=== PATIENT | female | born 1970 | race Caucasian/White ===

== ENCOUNTER 2016-07-25 22:26 | Emergency (ER) | payer OTHER ==
[~2016-07-25] VITALS: Ht 165.1 cm; Wt 97.9 kg
[2016-07-25] MEDS ORDERED: PERCOCET 5/31 TABLET PO (23:24)
[2016-07-25] MEDS ORDERED: INDOCIN50 MG PO (23:24)
[2016-07-25] MEDS ORDERED: VALIUM5 MG PO (23:24)
[2016-07-25] MEDS ORDERED: PREDNISONE20 MG PO (23:24)
[2016-07-26 00:13] VITALS: BP 139/95
== END 2016-07-26 00:14 | disposition home or self-care (01) ==
LOC: EXP 22:26 → EME 22:26 → EXP 07-26 00:14
DX: S39.012A Strain of muscle, fascia and tendon of lower back, initial encounter (principal); M51.37 Other intervertebral disc degeneration, lumbosacral region; G89.29 Other chronic pain; M54.5 Low back pain; X50.0XXA Overexertion from strenuous movement or load, initial encounter; Z88.6 Allergy status to analgesic agent
CPT/HCPCS: 99281; 99283; J1885; J3010; J7512

== ENCOUNTER 2016-08-03 21:24 | Emergency (ER) | payer OTHER ==
[~2016-08-03] VITALS: Ht 165.1 cm; Wt 99.3 kg
[~2016-08-03 21:24] MED LIST: INDOCIN50 MG PO; PERCOCET 5/31 TABLET PO; PREDNISONE20 MG PO; VALIUM5 MG PO
[2016-08-03] MEDS ORDERED: VALIUM5 MG PO (22:14)
[2016-08-03 22:31] VITALS: BP 106/80
== END 2016-08-03 22:42 | disposition home or self-care (01) ==
LOC: EME 21:24
DX: G89.29 Other chronic pain (principal); M54.5 Low back pain; Z88.6 Allergy status to analgesic agent
CPT/HCPCS: 99281; 99283; J3010

== ENCOUNTER 2016-08-26 21:11 | Emergency (ER) | payer OTHER ==
[~2016-08-26] VITALS: Ht 165.1 cm; Wt 102.7 kg
[2016-08-26 21:24] VITALS: BP 130/89
== END 2016-08-27 00:23 | disposition home or self-care (01) ==
LOC: EME 21:11
DX: G89.29 Other chronic pain (principal); M54.5 Low back pain
CPT/HCPCS: 99281; 99284; J3010

== ENCOUNTER 2016-08-31 00:01 | Observation (INO) | payer OTHER ==
[~2016-08-31] VITALS: Ht 165.1 cm; Wt 105.0 kg
[2016-08-31 01:03] LABS: HEMATOCRIT 35.9 % (36.0-46.0); MCH 29.3 PG (29.0-34.0); MCHC 32.9 G/DL (30.0-36.0); MCV 89.1 FL (83-99); MEAN PLAT.VOLUME 9.4 uM^3 (9.5-12.4); PLATELET COUNT 309 K/uL (156-360); RBC DIS.WIDTH-SD 45.4 % (39-53); RED BLOOD COUNT 4.03 M/uL (3.80-5.20); WHITE BLOOD COUNT 9.5 K/uL (4.1-10.2)
[2016-08-31 01:23] LABS: CHLORIDE 110 mEq/L (99-109); POTASSIUM 3.4 mEq/L (3.7-5.4); SODIUM 142 mEq/L (136-147)
[2016-08-31 01:25] LABS: GLUCOSE 103 mg/dL (70-99)
[2016-08-31 01:26] LABS: ANION GAP 9 MEQ/L (2-14)
[2016-08-31 01:27] LABS: TOTAL BILIRUBIN 0.2 mg/dL (0.0-1.0)
[2016-08-31 01:28] LABS: SERUM ETHYL ALCOHOL < 10 mg/dL
[2016-08-31 01:29] LABS: ALKALINE PHOSPHATASE 66 IU/L (3-129); GFR ESTIMATE (CALCULATED) > 59 mL/min/
[2016-08-31 01:31] LABS: UREA NITROGEN (BUN) 16 mg/dL (9-23)
[2016-08-31 01:32] LABS: SALICYLATE < 5.0 MG/DL (15-30)
[2016-08-31 01:33] LABS: LIPASE 9 U/L (1.0-51.0)
[2016-08-31 01:40] LABS: QUANTITATIVE HCG < 4.0 MIU/ML
[2016-08-31 01:54] LABS: CARBON DIOXIDE (BICARBONATE) 28.4 MEQ/L (20-31)
[2016-08-31 08:55] VITALS: BP 130/60
[2016-08-31 11:39] VITALS: BP 118/71
[2016-08-31 13:12] LABS: EOSINOPHIL (%) 0 % (0-5); HEMATOCRIT 37.9 % (36.0-46.0); IMMATURE GRANULOCYTE (%) 0.5 % (0.0-0.7); IMMATURE GRANULOCYTE COUNT 0.1 K/uL; MCH 29.2 PG (29.0-34.0); MCHC 32.2 G/DL (30.0-36.0); MCV 90.7 FL (83-99); MEAN PLAT.VOLUME 9.3 uM^3 (9.5-12.4); MONOCYTE (%) 2.8 % (3-12); MONOCYTE COUNT 0.4 K/uL (0-0.8); NEUTROPHIL (%) 89.6 % (45-76); PLATELET COUNT 298 K/uL (156-360); RBC DIS.WIDTH-CV 14.1 % (11.8-14.6); RBC DIS.WIDTH-SD 46.9 % (39-53); RED BLOOD COUNT 4.18 M/uL (3.80-5.20); WHITE BLOOD COUNT 14.6 K/uL (4.1-10.2)
[2016-08-31 13:31] LABS: ANION GAP 10 MEQ/L (2-14); CHLORIDE 109 MEQ/L (99-109); GFR ESTIMATE (CALCULATED) > 59 mL/min/; GLUCOSE 119 mg/dL (70-99); POTASSIUM 3.9 MEQ/L (3.7-5.4); SAMPLE HEMOLYSIS CHECK 0; SAMPLE ICTERIC CHECK 0; SAMPLE LIPEMIA CHECK 0; SODIUM 138 MEQ/L (136-147); UREA NITROGEN (BUN) 13 mg/dL (9-23)
[2016-08-31 15:10] VITALS: BP 115/67
[2016-08-31] MEDS ORDERED: PERCOCET 5/31 TABLET PO (17:49)
[2016-08-31] MEDS ORDERED: GABAPENTIN600 MG PO (17:50)
[2016-08-31] MEDS ORDERED: LISINOPRIL10 MG PO (17:50)
[2016-08-31] MEDS ORDERED: TOPAMAX100 MG PO (17:50)
[2016-08-31] MEDS ORDERED: TRAMADOL HCL50 MG PO (17:50)
[2016-08-31] MEDS ORDERED: CELEXA40 MG PO (17:50)
[2016-08-31] MEDS ORDERED: GABAPENTIN800 MG PO (17:51)
[2016-08-31] MEDS ORDERED: IBUPROFEN800 MG PO (17:51)
[2016-08-31 19:56] VITALS: BP 110/69
[2016-08-31 23:30] LABS: BILIRUBIN NEGATIVE; BLOOD NEGATIVE; COLOR YELLOW ((YELLOW)); GLUCOSE (STRIP) NEGATIVE; KETONES NEGATIVE; LEUKOCYTES NEGATIVE; NITRITE NEGATIVE; PROTEIN (STRIP) NEGATIVE; SPECIFIC GRAVITY 1.028 (1.000-1.030); UROBILINOGEN 0.2 MG/DL (0.2-1.0)
[2016-08-31 23:37] LABS: ADD MIUA? NO; UCUL ADDED? NO
[2016-08-31 23:53] LABS: AMPHETAMINES QUANT VALUE 0 NG/ML; BARBITUATES QUANT VALUE 0 NG/ML; BENZODIAZEPINES, URINE SCREEN POSITIVE (200 ng/mL); MARIJUANA QUANT VALUE 0 NG/ML; OPIATES QUANTITATIVE VALUE 0 NG/ML; PHENCYCLIDINE QUANT VALUE 0 NG/ML
[2016-09-01] VITALS (9 sets, daily range): BP systolic 91–128; BP diastolic 58–70
[2016-09-01 09:56] LABS: EOSINOPHIL (%) 0.7 % (0-5); EOSINOPHIL COUNT 0.1 K/uL (0-0.3); HEMATOCRIT 38.5 % (36.0-46.0); IMMATURE GRANULOCYTE (%) 0.7 % (0.0-0.7); IMMATURE GRANULOCYTE COUNT 0.1 K/uL; INSTRUMENT ABS NEUTROPHIL CT 10.6 K/uL; LYMPHOCYTE COUNT 1.4 K/uL (1.0-2.8); MCHC 33.2 G/DL (30.0-36.0); MCV 90.4 FL (83-99); MONOCYTE (%) 3.2 % (3-12); MONOCYTE COUNT 0.4 K/uL (0-0.8); NEUTROPHIL (%) 83.8 % (45-76); NEUTROPHIL COUNT 10.6 K/uL (1.8-6.4); RBC DIS.WIDTH-CV 14.6 % (11.8-14.6); RBC DIS.WIDTH-SD 48.4 % (39-53); RED BLOOD COUNT 4.26 M/uL (3.80-5.20); WHITE BLOOD COUNT 12.6 K/uL (4.1-10.2)
[2016-09-01 10:33] LABS: MEAN PLAT.VOLUME 9.5 uM^3 (9.5-12.4); PLAT.SUFFICIENCY ADEQUATE; PLATELET COUNT 272 K/uL (156-360)
[2016-09-01 10:42] LABS: ALKALINE PHOSPHATASE 65 IU/L (3-129); ANION GAP 7 MEQ/L (2-14); CHLORIDE 113 MEQ/L (99-109); DIRECT BILIRUBIN 0.2 mg/dL (0.0-0.3); GFR ESTIMATE (CALCULATED) > 59 mL/min/; GLUCOSE 74 mg/dL (70-99); POTASSIUM 3.5 MEQ/L (3.7-5.4); SAMPLE HEMOLYSIS CHECK 0; SAMPLE ICTERIC CHECK 0; SAMPLE LIPEMIA CHECK 0; SODIUM 139 MEQ/L (136-147); TOTAL BILIRUBIN 0.6 MG/DL (0.0-1.0); UREA NITROGEN (BUN) 10 mg/dL (9-23)
[2016-09-02] VITALS: BP 127/69
[2016-09-02 04:00] VITALS: BP 93/57
[2016-09-02 06:44] LABS: EOSINOPHIL (%) 1.8 % (0-5); EOSINOPHIL COUNT 0.2 K/uL (0-0.3); HEMATOCRIT 31.8 % (36.0-46.0); IMMATURE GRANULOCYTE (%) 0.8 % (0.0-0.7); IMMATURE GRANULOCYTE COUNT 0.1 K/uL; INSTRUMENT ABS NEUTROPHIL CT 6.8 K/uL; LYMPHOCYTE COUNT 1.7 K/uL (1.0-2.8); MCHC 32.7 G/DL (30.0-36.0); MCV 91.6 FL (83-99); MEAN PLAT.VOLUME 9.9 uM^3 (9.5-12.4); MONOCYTE (%) 4.4 % (3-12); MONOCYTE COUNT 0.4 K/uL (0-0.8); NEUTROPHIL (%) 74.3 % (45-76); NEUTROPHIL COUNT 6.8 K/uL (1.8-6.4); PLATELET COUNT 276 K/uL (156-360); RBC DIS.WIDTH-CV 14.7 % (11.8-14.6); RBC DIS.WIDTH-SD 49.4 % (39-53); RED BLOOD COUNT 3.47 M/uL (3.80-5.20); WHITE BLOOD COUNT 9.2 K/uL (4.1-10.2)
[2016-09-02 07:38] LABS: ANION GAP 8 MEQ/L (2-14); CHLORIDE 117 MEQ/L (99-109); GFR ESTIMATE (CALCULATED) > 59 mL/min/; GLUCOSE 85 mg/dL (70-99); SAMPLE HEMOLYSIS CHECK 0; SAMPLE ICTERIC CHECK 0; SAMPLE LIPEMIA CHECK 0; SODIUM 145 MEQ/L (136-147); UREA NITROGEN (BUN) 12 mg/dL (9-23)
[2016-09-02 09:10] VITALS: BP 114/57
[2016-09-02] MEDS ORDERED: AUGMENTIN875 MG PO (11:58)
[2016-09-02 12:13] VITALS: BP 110/67
== END 2016-09-02 13:53 | disposition home or self-care (01) ==
LOC: EME 00:01 → EDBD 00:01 → EDOF 07:55 → 5WEST 07:55 → EDOF 07:55 → 5WEST 08:44
PROVIDERS: Emergency Medicine; Internal Medicine; Nurse Practitioner Adult Health; Physician Assistant Medical
DX: T40.2X1A Poisoning by other opioids, accidental (unintentional), initial encounter (principal); J69.0 Pneumonitis due to inhalation of food and vomit; R09.02 Hypoxemia; F19.10 Other psychoactive substance abuse, uncomplicated; I95.9 Hypotension, unspecified; R00.0 Tachycardia, unspecified; E87.6 Hypokalemia; D72.829 Elevated white blood cell count, unspecified; R79.89 Other specified abnormal findings of blood chemistry; R11.2 Nausea with vomiting, unspecified; G89.29 Other chronic pain; M51.26 Other intervertebral disc displacement, lumbar region; F32.9 Major depressive disorder, single episode, unspecified
CPT/HCPCS: 71010; 71020; 71260; 74176; 80048; 80048 91; 80053; 80076; 80306 90; 81003; 82803; 83690; 84702; 85025; 85027; 92610 GN; 93005; 94799; 99281; 99285; G0378; G0480; G8996 GN CH; G8997 GN CH; G8998 GN CH; J1630; J1644; J1885; J2310; J2405; J2543; J7030; J7050

== ENCOUNTER 2016-09-17 18:05 | Emergency (ER) | payer OTHER ==
[~2016-09-17] VITALS: Ht 165.1 cm; Wt 103.4 kg
[~2016-09-17 18:05] MED LIST changes: +AUGMENTIN875 MG PO; +CELEXA40 MG PO; +GABAPENTIN600 MG PO; +GABAPENTIN800 MG PO; +IBUPROFEN800 MG PO; +LISINOPRIL10 MG PO; +TOPAMAX100 MG PO; +TRAMADOL HCL50 MG PO
[2016-09-17] MEDS ORDERED: PERCOCET 5/31 TABLET PO (22:15)
[2016-09-17] MEDS ORDERED: MEDROL DOSEPAK4 MG PO (22:15)
[2016-09-17 22:55] VITALS: BP 110/78
== END 2016-09-17 22:55 | disposition home or self-care (01) ==
LOC: EME 18:05
DX: M54.12 Radiculopathy, cervical region (principal); M50.323 Other cervical disc degeneration at C6-C7 level; M50.322 Other cervical disc degeneration at C5-C6 level; I10 Essential (primary) hypertension
CPT/HCPCS: 72125; 99281; 99284; J1885; J8540

== ENCOUNTER 2016-10-01 00:49 | Emergency (ER) | payer OTHER ==
[~2016-10-01] VITALS: Ht 165.1 cm; Wt 101.4 kg
[~2016-10-01 00:49] MED LIST changes: +MEDROL DOSEPAK4 MG PO
[2016-10-01 00:59] VITALS: BP 131/87
[2016-10-01] MEDS ORDERED: MEDROL DOSEPAK4 MG PO (03:28)
[2016-10-01] MEDS ORDERED: PERCOCET 5/31 TABLET PO (03:28)
[2016-10-01] MEDS ORDERED: LIDODERM 5% P1 PATCH TD (03:28)
== END 2016-10-01 03:42 | disposition home or self-care (01) ==
LOC: EME 00:49
DX: G89.29 Other chronic pain (principal); M54.5 Low back pain; Y99.0 Civilian activity done for income or pay; Z88.6 Allergy status to analgesic agent
CPT/HCPCS: 99281; 99284; J7512

== ENCOUNTER 2016-10-24 01:30 | Emergency (ER) | payer OTHER ==
[~2016-10-24] VITALS: Ht 165.1 cm; Wt 100.9 kg
[~2016-10-24 01:30] MED LIST changes: +LIDODERM 5% P1 PATCH TD
[2016-10-24] MEDS ORDERED: PERCOCET 5/31 TABLET PO (03:54)
[2016-10-24 04:12] VITALS: BP 168/96
== END 2016-10-24 04:13 | disposition home or self-care (01) ==
LOC: EXP 01:30 → EME 01:30 → EXP 04:13
DX: S70.01XA Contusion of right hip, initial encounter (principal); W18.09XA Striking against other object with subsequent fall, initial encounter; I10 Essential (primary) hypertension
CPT/HCPCS: 73502; 99281; 99283

== ENCOUNTER 2016-11-01 03:53 | Emergency (ER) | payer OTHER ==
[~2016-11-01] VITALS: Ht 165.1 cm; Wt 102.0 kg
[2016-11-01] MEDS ORDERED: NAPROSYN500 MG PO (04:56)
== END 2016-11-01 05:28 | disposition home or self-care (01) ==
LOC: EME 03:53
DX: S63.502A Unspecified sprain of left wrist, initial encounter (principal); M54.5 Low back pain; W01.0XXA Fall on same level from slipping, tripping and stumbling without subsequent striking against object, initial encounter; Z98.1 Arthrodesis status
CPT/HCPCS: 73110; 99281; 99284

== ENCOUNTER 2016-11-07 00:20 | Emergency (ER) | payer OTHER ==
[~2016-11-07] VITALS: Ht 165.1 cm; Wt 101.5 kg
[~2016-11-07 00:20] MED LIST changes: +NAPROSYN500 MG PO
[2016-11-07] MEDS ORDERED: NORCO 5/3251 TABLET PO (05:18)
[2016-11-07] MEDS ORDERED: FLEXERIL10 MG PO (05:18)
[2016-11-07 05:40] VITALS: BP 142/87
== END 2016-11-07 05:40 | disposition home or self-care (01) ==
LOC: EME 00:20
DX: S30.0XXA Contusion of lower back and pelvis, initial encounter (principal); W18.09XA Striking against other object with subsequent fall, initial encounter; Y93.E6 Activity, residential relocation; G89.29 Other chronic pain; M51.36 Other intervertebral disc degeneration, lumbar region; I10 Essential (primary) hypertension
CPT/HCPCS: 72100; 99281; 99284; J1885; J3010

== ENCOUNTER 2016-11-10 03:17 | Emergency (ER) | payer OTHER ==
[~2016-11-10] VITALS: Ht 165.1 cm; Wt 103.4 kg
[~2016-11-10 03:17] MED LIST changes: +FLEXERIL10 MG PO; +NORCO 5/3251 TABLET PO
[2016-11-10] MEDS ORDERED: NAPROXEN500 MG PO (04:23)
[2016-11-10 04:31] VITALS: BP 133/88
== END 2016-11-10 04:31 | disposition home or self-care (01) ==
LOC: EME 03:17
DX: M54.9 Dorsalgia, unspecified (principal); G89.29 Other chronic pain; M25.551 Pain in right hip
CPT/HCPCS: 99281; 99284; J1885

== ENCOUNTER 2016-11-13 17:09 | Emergency (ER) | payer OTHER ==
[~2016-11-13] VITALS: Ht 165.1 cm; Wt 104.5 kg
[~2016-11-13 17:09] MED LIST changes: +NAPROXEN500 MG PO
[2016-11-13] MEDS ORDERED: LIDODERM 5% P1 PATCH TD (18:19)
[2016-11-13] MEDS ORDERED: VALIUM2 MG PO (18:19)
[2016-11-13] MEDS ORDERED: NAPROXEN500 MG PO (18:19)
[2016-11-13 18:45] VITALS: BP 137/89
== END 2016-11-13 18:46 | disposition home or self-care (01) ==
LOC: EME 17:09
DX: M54.5 Low back pain (principal); G89.29 Other chronic pain; W01.0XXA Fall on same level from slipping, tripping and stumbling without subsequent striking against object, initial encounter; Z88.5 Allergy status to narcotic agent
CPT/HCPCS: 72100; 99281; 99284; J1885

== ENCOUNTER 2016-11-30 23:22 | Emergency (ER) | payer OTHER ==
[~2016-11-30] VITALS: Ht 160 cm; Wt 106.1 kg
[~2016-11-30 23:22] MED LIST changes: +VALIUM2 MG PO
[2016-12-01] MEDS ORDERED: NAPROSYN500 MG PO (01:33)
[2016-12-01 02:00] VITALS: BP 107/83
== END 2016-12-01 02:04 | disposition home or self-care (01) ==
LOC: EME 23:22
DX: S20.229A Contusion of unspecified back wall of thorax, initial encounter (principal); S30.0XXA Contusion of lower back and pelvis, initial encounter; W10.9XXA Fall (on) (from) unspecified stairs and steps, initial encounter; G89.29 Other chronic pain; Z79.891 Long term (current) use of opiate analgesic
CPT/HCPCS: 72070; 72170; 99281; 99284; J1885

== ENCOUNTER 2016-12-31 20:41 | Emergency (ER) | payer OTHER ==
[~2016-12-31] VITALS: Ht 162.6 cm; Wt 115.0 kg
== END 2016-12-31 21:44 | disposition left against medical advice (07) ==
LOC: EME 20:41
DX: K08.89 Other specified disorders of teeth and supporting structures (principal); Z53.21 Procedure and treatment not carried out due to patient leaving prior to being seen by health care provider

== ENCOUNTER 2017-01-03 17:51 | Emergency (ER) | payer OTHER ==
[~2017-01-03] VITALS: Ht 160 cm; Wt 107.9 kg
[2017-01-03 17:53] VITALS: BP 120/75
[2017-01-04] MEDS ORDERED: SUMATRIPTAN SU100 MG PO (22:12)
[2017-01-04] MEDS ORDERED: PREDNISONE20 MG PO (22:25)
== END 2017-01-03 18:52 | disposition left against medical advice (07) ==
LOC: EME 17:51
DX: M54.9 Dorsalgia, unspecified (principal); Z53.21 Procedure and treatment not carried out due to patient leaving prior to being seen by health care provider

== ENCOUNTER 2017-01-04 22:00 | Emergency (ER) | payer OTHER ==
[~2017-01-04] VITALS: Ht 162.6 cm; Wt 108.3 kg
[2017-01-04] MEDS ORDERED: SUMATRIPTAN SU100 MG PO (22:12)
[2017-01-04] MEDS ORDERED: PREDNISONE20 MG PO (22:25)
[2017-01-04 22:55] VITALS: BP 111/72
== END 2017-01-04 23:02 | disposition home or self-care (01) ==
LOC: EME 22:00
DX: M17.0 Bilateral primary osteoarthritis of knee (principal); Z88.5 Allergy status to narcotic agent
CPT/HCPCS: 99281; 99283; J1100

== ENCOUNTER 2017-02-17 16:34 | Emergency (ER) | payer OTHER ==
[~2017-02-17 16:34] MED LIST changes: +LEXAPRO20 MG PO; +SUMATRIPTAN SU100 MG PO
[2017-02-17 16:42] VITALS: BP 134/70
== END 2017-02-17 19:43 | disposition left against medical advice (07) ==
LOC: EME 16:34
DX: M25.551 Pain in right hip (principal); Z53.21 Procedure and treatment not carried out due to patient leaving prior to being seen by health care provider

== ENCOUNTER 2017-02-19 07:44 | Emergency (ER) | payer OTHER ==
[~2017-02-19] VITALS: Ht 165.1 cm; Wt 106.9 kg
[2017-02-19] MEDS ORDERED: IMITREX100 MG PO (08:53)
[2017-02-19] MEDS ORDERED: CYCLOBENZAPRINE10 MG PO (08:54)
[2017-02-19] MEDS ORDERED: FLEXERIL10 MG PO (10:09)
[2017-02-19] MEDS ORDERED: TRAMADOL HCL50 MG PO (10:09)
[2017-02-19 11:12] VITALS: BP 112/73
== END 2017-02-19 11:14 | disposition home or self-care (01) ==
LOC: EME 07:44
DX: M25.551 Pain in right hip (principal); G89.29 Other chronic pain; Y99.0 Civilian activity done for income or pay; Z88.5 Allergy status to narcotic agent
CPT/HCPCS: 73502; 99281; 99283

== ENCOUNTER 2017-05-12 10:13 | Emergency (ER) | payer OTHER ==
[~2017-05-12] VITALS: Ht 165.1 cm; Wt 103.9 kg
[~2017-05-12 10:13] MED LIST changes: +CYCLOBENZAPRINE10 MG PO; +IMITREX100 MG PO
[2017-05-12 12:00] LABS: BASOPHIL (%) 0.6 % (0-1); EOSINOPHIL (%) 2.3 % (0-5); EOSINOPHIL COUNT 0.2 K/uL (0-0.3); HEMATOCRIT 41.4 % (36.0-46.0); HEMOGLOBIN 13.5 G/DL (11.9-15.5); IMMATURE GRANULOCYTE (%) 1.1 % (0.0-0.7); LYMPHOCYTE (%) 28.4 % (15-42); MCH 29.2 PG (29.0-34.0); MCHC 32.6 G/DL (30.0-36.0); MCV 89.6 FL (83-99); MONOCYTE (%) 8.6 % (3-12); MONOCYTE COUNT 0.6 K/uL (0-0.8); NEUTROPHIL COUNT 4.1 K/uL (1.8-6.4); PLATELET COUNT 298 K/uL (156-360); RBC DIS.WIDTH-CV 13.7 % (11.8-14.6); RBC DIS.WIDTH-SD 44.9 % (39-53); RED BLOOD COUNT 4.62 M/uL (3.80-5.20)
[2017-05-12 12:51] LABS: CHLORIDE 114 mEq/L (99-109); POTASSIUM 3.5 mEq/L (3.7-5.4); SODIUM 143 mEq/L (136-147)
[2017-05-12 12:52] LABS: GLUCOSE 98 mg/dL (70-99)
[2017-05-12 12:56] LABS: CREATININE 0.7 mg/dL (0.6-1.3); GFR ESTIMATE (CALCULATED) > 59 mL/min/
[2017-05-12 12:57] LABS: UREA NITROGEN (BUN) 9 mg/dL (9-23)
[2017-05-12] MEDS ORDERED: IMODIUM A-D2 M2 PO (14:20)
[2017-05-12] MEDS ORDERED: ZOFRAN4 MG PO (14:20)
[2017-05-12 14:37] VITALS: BP 99/65
== END 2017-05-12 14:38 | disposition home or self-care (01) ==
LOC: EME 10:13
PROVIDERS: Emergency Medicine
DX: R11.2 Nausea with vomiting, unspecified (principal); R19.7 Diarrhea, unspecified; I10 Essential (primary) hypertension; F41.9 Anxiety disorder, unspecified; F32.9 Major depressive disorder, single episode, unspecified; G43.909 Migraine, unspecified, not intractable, without status migrainosus; Z90.49 Acquired absence of other specified parts of digestive tract; Z88.5 Allergy status to narcotic agent
CPT/HCPCS: 80048; 85025; 99281; 99284; J7030

== ENCOUNTER 2017-07-07 17:31 | Emergency (ER) | payer OTHER ==
[~2017-07-07] VITALS: Ht 165.1 cm; Wt 108.3 kg
[~2017-07-07 17:31] MED LIST changes: +IMODIUM A-D2 M2 PO; +ZOFRAN4 MG PO
[2017-07-07 18:26] VITALS: BP 00/00
[2017-07-07] MEDS ORDERED: MOTRIN800 MG PO (18:46)
[2017-07-07] MEDS ORDERED: ULTRAM50 MG PO (18:50)
== END 2017-07-07 19:13 | disposition home or self-care (01) ==
LOC: EME 17:31
DX: M77.32 Calcaneal spur, left foot (principal); M76.62 Achilles tendinitis, left leg; M20.12 Hallux valgus (acquired), left foot; M21.612 Bunion of left foot; I10 Essential (primary) hypertension; G43.909 Migraine, unspecified, not intractable, without status migrainosus; F41.9 Anxiety disorder, unspecified; F32.9 Major depressive disorder, single episode, unspecified; Z87.19 Personal history of other diseases of the digestive system; Z90.49 Acquired absence of other specified parts of digestive tract; Z88.5 Allergy status to narcotic agent
CPT/HCPCS: 73630; 99281; 99284

== ENCOUNTER 2017-09-05 05:26 | Emergency (ER) | payer OTHER ==
[~2017-09-05] VITALS: Ht 162.6 cm; Wt 110.0 kg
[~2017-09-05 05:26] MED LIST changes: +MOTRIN800 MG PO; +ULTRAM50 MG PO
[2017-09-05 06:06] LABS: HEMOGLOBIN 13.3 G/DL (11.9-15.5); MCH 29.8 PG (29.0-34.0); MCHC 33.3 G/DL (30.0-36.0); MCV 89.5 FL (83-99); PLATELET COUNT 285 K/uL (156-360); RBC DIS.WIDTH-CV 13.8 % (11.8-14.6); RBC DIS.WIDTH-SD 44.4 % (39-53); RED BLOOD COUNT 4.47 M/uL (3.80-5.20); WHITE BLOOD COUNT 8.6 K/uL (4.1-10.2)
[2017-09-05 06:16] LABS: ALBUMIN 3.7 g/dL (3.2-4.8)
[2017-09-05 06:17] LABS: CHLORIDE 111 mEq/L (99-109); POTASSIUM 3.7 mEq/L (3.7-5.4); SODIUM 146 mEq/L (136-147)
[2017-09-05 06:19] LABS: GLUCOSE 116 mg/dL (70-99); TOTAL PROTEIN 6.5 g/dL (6.4-8.3)
[2017-09-05 06:21] LABS: TOTAL BILIRUBIN 0.2 mg/dL (0.0-1.0)
[2017-09-05 06:22] LABS: ALKALINE PHOSPHATASE 94 IU/L (3-129)
[2017-09-05 06:23] LABS: CREATININE 1.1 mg/dL (0.6-1.3); GFR ESTIMATE (CALCULATED) 56 mL/min/
[2017-09-05 06:24] LABS: AST (GOT) 46 IU/L (2-34); UREA NITROGEN (BUN) 16 mg/dL (9-23)
[2017-09-05 06:26] LABS: ALT (GPT) 39 IU/L (3-49); LIPASE 11 U/L (1.0-51.0)
[2017-09-05 06:32] LABS: QUANTITATIVE HCG < 4.0 MIU/ML
[2017-09-05 06:33] LABS: APPEARANCE SL.HAZY ((CLEAR)); BILIRUBIN NEGATIVE; BLOOD NEGATIVE; COLOR YELLOW ((YELLOW)); GLUCOSE (STRIP) NEGATIVE; KETONES NEGATIVE; LEUKOCYTES LARGE; NITRITE NEGATIVE; PROTEIN (STRIP) NEGATIVE; SPECIFIC GRAVITY 1.019 (1.000-1.030); UROBILINOGEN 0.2 MG/DL (0.2-1.0)
[2017-09-05 06:35] LABS: BACTERIA NONE SEEN /HPF; EPITHELIAL CELLS 1+ /HPF; MUCUS TRACE /LPF; RED BLOOD CELLS 0-5 /HPF (0-5); UCUL ADDED? NO; WHITE BLOOD CELLS 0-5 /HPF (0-5)
[2017-09-05 08:21] VITALS: BP 111/86
[2017-09-06] MEDS ORDERED: GABAPENTIN400 MG PO (16:58)
== END 2017-09-05 08:36 | disposition home or self-care (01) ==
LOC: EME 05:26
PROVIDERS: Emergency Medicine
DX: K52.9 Noninfective gastroenteritis and colitis, unspecified (principal); I10 Essential (primary) hypertension; F41.9 Anxiety disorder, unspecified; F32.9 Major depressive disorder, single episode, unspecified; G43.909 Migraine, unspecified, not intractable, without status migrainosus; Z90.49 Acquired absence of other specified parts of digestive tract; Z88.5 Allergy status to narcotic agent
CPT/HCPCS: 80053; 81003; 83690; 84702; 85027; 99281; 99284; J1885; J2405; J7030

== ENCOUNTER 2017-09-09 18:07 | Emergency (ER) | payer OTHER ==
[~2017-09-09] VITALS: Ht 162.6 cm; Wt 113.0 kg
[~2017-09-09 18:07] MED LIST changes: +GABAPENTIN400 MG PO
[2017-09-09 18:55] LABS: HEMATOCRIT 40.4 % (36.0-46.0); HEMOGLOBIN 13.4 G/DL (11.9-15.5); MCH 29.5 PG (29.0-34.0); MCHC 33.2 G/DL (30.0-36.0); PLATELET COUNT 287 K/uL (156-360); RBC DIS.WIDTH-CV 13.8 % (11.8-14.6); RBC DIS.WIDTH-SD 44.9 % (39-53); RED BLOOD COUNT 4.54 M/uL (3.80-5.20); WHITE BLOOD COUNT 8.8 K/uL (4.1-10.2)
[2017-09-09 19:10] LABS: APPEARANCE SL.HAZY ((CLEAR)); BILIRUBIN NEGATIVE; BLOOD NEGATIVE; COLOR STRAW ((YELLOW)); GLUCOSE (STRIP) NEGATIVE; KETONES NEGATIVE; LEUKOCYTES TRACE; NITRITE NEGATIVE; PROTEIN (STRIP) NEGATIVE; UROBILINOGEN 0.2 MG/DL (0.2-1.0)
[2017-09-09 19:13] LABS: ALBUMIN 3.8 g/dL (3.2-4.8); CHLORIDE 113 mEq/L (99-109); POTASSIUM 3.7 mEq/L (3.7-5.4); SODIUM 144 mEq/L (136-147)
[2017-09-09 19:16] LABS: GLUCOSE 123 mg/dL (70-99); QUANTITATIVE HCG < 4.0 MIU/ML; TOTAL PROTEIN 6.6 g/dL (6.4-8.3)
[2017-09-09 19:19] LABS: BACTERIA RARE /HPF; EPITHELIAL CELLS 1+ /HPF; MUCUS NONE SEEN /LPF; RED BLOOD CELLS 0-5 /HPF (0-5); UCUL ADDED? NO; WHITE BLOOD CELLS 0-5 /HPF (0-5)
[2017-09-09 19:19] LABS: ALKALINE PHOSPHATASE 97 IU/L (3-129); CREATININE 0.7 mg/dL (0.6-1.3); GFR ESTIMATE (CALCULATED) > 59 mL/min/
[2017-09-09 19:21] LABS: AST (GOT) 36 IU/L (2-34); UREA NITROGEN (BUN) 13 mg/dL (9-23)
[2017-09-09 19:22] LABS: ALT (GPT) 39 IU/L (3-49)
[2017-09-09 19:26] LABS: TOTAL BILIRUBIN 0.3 mg/dL (0.0-1.0)
[2017-09-09] MEDS ORDERED: ZOFRAN4 MG PO (22:43)
[2017-09-09 22:56] VITALS: BP 131/77
== END 2017-09-09 22:57 | disposition home or self-care (01) ==
LOC: EME 18:07 → EXP 18:07
DX: R11.2 Nausea with vomiting, unspecified (principal); R19.7 Diarrhea, unspecified; I10 Essential (primary) hypertension; G25.81 Restless legs syndrome; F41.9 Anxiety disorder, unspecified; F32.9 Major depressive disorder, single episode, unspecified; G43.909 Migraine, unspecified, not intractable, without status migrainosus; Z90.49 Acquired absence of other specified parts of digestive tract; Z88.5 Allergy status to narcotic agent
CPT/HCPCS: 74018; 80053; 81003; 84702; 85027; 87177; 87493; 87506; 99281; 99284; J2405; J7030